=== PATIENT | male | born 1945 | race Caucasian/White ===

== ENCOUNTER 2017-12-24 03:26 | Inpatient (IN) | payer OTHER ==
[~2017-12-24] VITALS: Ht 172.7 cm; Wt 93.9 kg
[~2017-12-24 03:26] MED LIST: ADULT ASPIRIN R81 MG PO; CALCIUM CARBONATE PO; COREG12.5 M1 PO; CRESTOR5 M1 PO; HYDROCHLOROTH12.5 M3 PO; LISINOPRIL10 M1 PO
--- NOTE | 2017-12-24 15:42 | Admission Core Measures ---
Acute Coronary Syndrome (CM) ACS Core Measures Acute Coronary Syndrome Diagnosis No Congestive Heart Failure (NEW) CHF Core Measures Congestive Heart Failure Diagnosis No Cerebrovascular Accident CVA Core Measures CVA/TIA Diagnosis No Venous Thromboembolism VTE Core Juan Alberto (View Protocol) VTE Risk Factors Surgery No Mechanical VTE Prophylaxis d/t N/A MechProphylax Ordered No VTE Pharm Prophylaxis d/t NA PharmProphylax ordered Problem List As ranked by this Provider includes Assessment & Plan 1. Unilateral primary osteoarthritis, left knee HOME MEDS Home Med List Aspirin (Adult Aspirin Regimen) 81 MG TABLET.DR 1 TAB PO DAILY HEART HEALTH ( Reported) [CALCIUM CARBONATE] 500 MG PO DAILY UNKNOWN (Reported) Carvedilol (Coreg) 12.5 MG TABLET 1 TAB PO BID IRREG. HEART BEAT (Reported) Hydrochlorothiazide 12.5 MG CAPSULE 1 CAP PO DAILY DAILY (Reported) Lisinopril 10 MG TABLET 1 TAB PO DAILY BP (Reported) Rosuvastatin Calcium (Crestor) 5 MG TABLET 1 TAB PO DAILY CHOLESTEROL ( Reported)
[2017-12-24] MEDS ORDERED: DILAUDID2 M1 PO (15:56)
[2017-12-24] MEDS ORDERED: PRILOSEC OTC20 M1 PO (15:56)
[2017-12-24] MEDS ORDERED: MIRALAX17 G1 PO (15:56)
[2017-12-24] MEDS ORDERED: ASPIRIN EC81 M1 PO (15:56)
[2017-12-24] MEDS ORDERED: COLACE100 M1 PO (15:56)
--- NOTE | 2017-12-24 16:00 | Patient Discharge Instructions ---
Discharge Instructions General Discharge Information You were seen/treated for: Left knee pain related to unilateral primary osteoarthritis You had these procedures: Left total knee replacement Watch for these problems: Increasing pain despite the use of pain medication Increasing redness, warmth or swelling Drainage of any type from incision Inability to bear weight on operative leg Persistent nausea and vomiting Fever greater than 101.5 degrees Do not soak the wound: Yes No bath, but you may shower: Yes Other wound care: Please keep wound clean and dry. No ointments or lotions of any type on or near incision at any time. No exceptions. Your dressing will be changed by your nurse on the second day after your surgery. Daily dry dressing changes are recommended each day thereafter. Do not soak your wound in a bath or pool at any time until otherwise indicated by your surgeon. You may shower, please dry wound immediately after shower with a clean towel. Special Instructions: Aspirin: You are taking this medication to help prevent blood clot formation. Please take with food to protect your stomach lining. Please take as directed. Constipation: Pain medication can cause constipation. Your surgeon has recommended that you take Colace and miralax each day. You may discontinue this medication if you develop loose stool or diarrhea. If you wish to continue this medication, it is available over the counter. If you are unable to move your bowels after several days, if you are unable to pass gas and are developing bloating, nausea, or vomiting as a result, please contact your doctor. Diet Continue normal diet: Yes Recommended Diet: Regular Activity Full Activity/No Limits: No Activity Self Limited: Yes Pounds, do NOT lift more than: 10 Acute Coronary Syndrome Inclusion Criteria At DC or during hospital stay patient has or had the following: ACS DIAGNOSIS No Discharge Core Measures Meds if any: Prescribed or Continued at Discharge Meds if any: NOT Prescribed or Continued at Discharge Congestive Heart Failure Inclusion Criteria At DC or during hospital stay patient has or had the following: CHF DIAGNOSIS No Discharge Core Measures Meds if any: Prescribed or Continued at Discharge Meds if any: NOT Prescribed or Continued at Discharge Cerebrovascular accident Inclusion Criteria At DC or during hospital stay patient has or had the following: CVA/TIA Diagnosis No Discharge Core Measures Meds if any: Prescribed or Continued at Discharge Meds if any: NOT Prescribed or Continued at Discharge Venous thromboembolism Inclusion Criteria VTE Diagnosis No VTE Type NONE VTE Confirmed by (Test) NONE Discharge Core Measures - Per Current guidelines, there needs to be overlap - treatment for the first 5 days of Warfarin therapy. - If discharged on Warfarin prior to 5 days of - overlap therapy, the patient will need to be - assessed for post discharge needs including - *Post discharge parental anticoagulation - *Warfarin and/or parental anticoagulation education - *Follow up date to check INR post discharge At least 5 days overlap therapy as Inpatient No Meds if any: Prescribed or Continued at Discharge Note: Overlap Therapy is Warfarin and Anticoagulant Meds if any: NOT Prescribed or Continued at Discharge
--- NOTE | 2017-12-24 16:01 | Surgical Discharge Summary ---
Visit Information Visit Dates Admission Date: 12/24/17 Discharge Date: 12/26/17 History of Present Illness Chief Complaint: Left knee pain related to unilateral primary osteoarthritis Surgical History Pertinent Surgical History: non-contributory Review of Systems: See H&P Hospital Course Course Attending Physician: Evaristo Jensen MD Primary Care Physician: Zane Velasquez MD Hospital Course: Patient was admitted to the hospital for an elective total joint replacement. The procedure was tolerated well and patient was transferred to a general surgical floor. Diet was advanced and tolerated. The patient was evaluated and treated by physical therapy. At the time of hospital discharge, the vital signs were stable, neurovascular status was intact, and pain was controlled with the use of oral pain medications. Allergies: Coded Allergies: No Known Allergies (12/23/17) PER PRE-OP ORDER SHEET FROM [facility]. - 12/23/17 Significant Procedures: LEFT TOTAL KNEE ARTHROPLASTY Disposition Summary Disposition Principal Diagnosis: Left knee unilateral primary osteoarthritis Additional Diagnosis: None Discharge Disposition: home health services Discharge Instructions General Discharge Information Code Status: Full Code Patient's Diet: Regular, advance as tolerated Patient's Activity: WBAT Follow-Up Instructions/Appts: Follow up with Dr. Jensen in 6 weeks from date of surgery. Please call office to arrange &/or confirm this appointment. Medications at Discharge Discharge Medications: Stop taking the following medications: Aspirin (Adult Aspirin Regimen) 81 MG TABLET. ORAL DAILY Continue taking these medications: [CALCIUM CARBONATE] 500 Milligram ORAL DAILY Hydrochlorothiazide (Hydrochlorothiazide) 12.5 MG CAPSULE 1 Capsule ORAL DAILY Carvedilol (Coreg) 12.5 MG TABLET 1 Tablet ORAL TWICE DAILY Lisinopril (Lisinopril) 10 MG TABLET 1 Tablet ORAL DAILY Rosuvastatin Calcium (Crestor) 5 MG TABLET 1 Tablet ORAL DAILY Start taking the following new medications: Aspirin (Ecotrin*) 81 MG TABLET. 1 Tablet ORAL TWICE DAILY Qty = 60 No Refills Docusate Sodium (Colace) 100 MG CAPSULE 1 Capsule ORAL TWICE DAILY Qty = 14 No Refills Instructions: DISCONTINUE USE IF YOU DEVELOP LOOSE STOOL OR DIARRHEA Polyethylene Glycol 3350 (Miralax) 17 GRAM POWD.PACK 1 Packet ORAL DAILY Qty = 7 No Refills Instructions: dissolve in water, DISCONTINUE USE IF YOU DEVELOP LOOSE STOOL OR DIARRHEA Hydromorphone HCl (Dilaudid) 2 MG TABLET 1-2 Tablet ORAL EVERY 4-6 HOURS NEEDED as needed for PAIN Qty = 36 No Refills Omeprazole Magnesium (Prilosec Otc) 20 MG TABLET.DR 1 Tablet ORAL DAILY Qty = 30 No Refills
--- NOTE | 2017-12-24 16:26 | Operative Report ---
Operative/Inv Procedure Report Surgery Date: 12/24/17 Name of Procedure: 1. Left total knee replacement 2. Right knee cortisone injection Pre-Operative Diagnosis: Bilateral primary knee DJD Post-Operative Diagnosis: Same Estimated Blood Loss: 50ml to 100ml Surgeon/Blood And Plasma Laboratory Assistant: Camila HUTSON,Evaristo Ivy Anesthesia: block Operative/Procedure Note Note: Description of Procedure: The patient was taken to the operating room and positively identified. After induction of spinal anesthesia and administration of appropriate pre-operative antibiotics, the patient was positioned supine on the operating room table and all bony prominences were well padded. The right knee was prepped sterilely and injected with a mixture of 2 mL of Depo -Medrol and 6 mL OF Marcaine. A Band-Aid was placed over the injection site. Attention was then turned to the left lower extremity. A well-padded pneumatic tourniquet was placed on the left upper thigh. After performing a surgical timeout, the left lower extremity was prepped and draped in the usual sterile fashion. After exsanguination with Esmarch the tourniquet was inflated to 250mm of mercury. A standard medial parapatellar approach was made to the knee. This was carried down through skin and subcutaneous tissue to the level of the fascia. Meticulous hemostasis was maintained with Bovie electrocautery. The extensor mechanism and patellar retinaculum were opened sharply and the patella was everted. The infrapatellar fat was resected in order to improve exposure. Osteophytes were trimmed from the patella and femoral condyles and the patella was re-everted and tucked laterally. A medial release was performed and the cruciate ligaments were resected. The tibia was then subluxed anteriorly. Utilizing the appropriate extra-medullary guide, the proximal tibia was trimmed perpendicular to the long axis of the tibial shaft. Attention was then turned to the femur. After opening the medullary canal, the distal femoral cut was made in 6 degrees of valgus utilizing the appropriate intra-medullary guide. The extension gap was checked and found to be appropriate. The femur was then sized and the remainder of the femoral cuts were made with a size 5 4-in-1 femoral cutting guide. The flexion gap was checked and found to be symmetric and appropriate. The knee was then trialed with a size 5 femoral component, a size 6 tibial component and a size 13 mm polyethylene insert. The patella was trimmed to accept an A 38 patella. This yielded excellent range of motion, stability and patellar tracking. All trial components were removed and the knee was copiously irrigated with sterile saline. All components were cemented into place with Bogue Simplex cement. All the components were of the [employer] Triathlon knee system of the above stated sizes. The knee was again irrigated after cementation. The extensor mechanism and patellar retinaculum were repaired using interrupted #1 vicryl suture. The skin was re-approximated with 2-0 vicryl and closed with mariah. A sterile dressing was applied, the tourniquet was deflated, the patient was awakened and taken to the recovery room in satisfactory condition.
[2017-12-24 17:35] VITALS: BP 140/80
[2017-12-24 19:55] VITALS: BP 128/80
[2017-12-24 22:35] VITALS: BP 129/77
--- NOTE | 2017-12-24 23:31 | PN- Orthopedic ---
Subjective Subjective: poc s/p left tka resting comfortably deneis cp, sob, no n+v has ambulated in room Objective Vital Signs and I&Os Vital Signs Date Time Temp Pulse Resp B/P B/P Pulse O2 O2 Flow FiO2 Mean Ox Delivery Rate 12/24 2234 97.7 54 20 129/77 94 Room Air 12/24 2148 54 129/77 12/24 1955 97.7 52 20 128/80 96 Room Air 12/24 1735 96.8 55 18 140/80 91 Room Air Intake & Output 12/24 1600 12/24 0800 12/24 0000 12/23 1600 12/23 0800 12/23 0000 Intake Total Output Total Balance Patient 190 lb Weight Physical Exam: cv: rrr lungs: clear abd: soft, +bs ext: drsg dry distal cms intact Assessment/Plan Assessment/Plan ortho stable plan cont current plan home d/c planning Core Measures Venous Thromboembolism VTE Risk Factors Surgery No Mechanical VTE Prophylaxis d/t N/A MechProphylax Ordered No VTE Pharm Prophylaxis d/t NA PharmProphylax ordered
[2017-12-25] VITALS (7 sets, daily range): BP systolic 102–130; BP diastolic 55–82
[2017-12-25 08:40] LABS: ABSOLUTE BASOPHIL COUNT 0 /CUMM (0.0-0.2); ABSOLUTE EOSINOPHIL COUNT 0 /CUMM (0.0-0.7); ABSOLUTE MONOCYTE COUNT 0.2 /CUMM (0.10-0.60); BASOPHIL % 0.1 % (0.0-2.0); EOSINOPHIL % 0 % (0-5); HEMATOCRIT 34.2 % (42-52); MEAN CORPUSCULAR HGB 29.3 PG (27.0-31.0); MEAN CORPUSCULAR HGB CONC 33.8 G/DL (33.0-37.0); MEAN CORPUSCULAR VOLUME 86.9 FL (80.0-94.0); MEAN PLATELET VOLUME 8.8 FL (7.4-10.4); PLATELET COUNT 256 /CUMM (130-400); RBC DISTRIBUTION WIDTH 14.1 % (11.5-14.5); RED BLOOD CELL CT 3.94 /CUMM (4.70-6.10); WHITE BLOOD CELL COUNT 13.3 /CUMM (4.8-10.8)
--- NOTE | 2017-12-25 09:47 | PN- Orthopedic ---
Subjective Subjective: Awake, alert Ambulated already with PT without difficulty Pain well controlled with meds Objective Vital Signs and I&Os Vital Signs Date Time Temp Pulse Resp B/P B/P Pulse O2 O2 Flow FiO2 Mean Ox Delivery Rate 12/25 0848 76 146/82 12/25 0848 76 146/82 12/25 0417 98.0 86 130/82 95 Room Air 12/25 0013 97.7 70 20 118/58 95 Room Air 12/24 2235 97.7 54 20 129/77 94 Room Air 12/24 2148 54 129/77 12/24 1955 97.7 52 20 128/80 96 Room Air 12/24 1735 96.8 55 18 140/80 91 Room Air Intake & Output 12/25 1600 12/25 0800 12/25 0000 12/24 1600 12/24 0800 12/24 0000 Intake Total 760 372 Output Total 300 0 Balance 460 372 Intake, IV 560 272 Intake, Oral 200 100 Number 0 0 Bowel Movements Output, Urine 300 0 Patient 207 lb 190 lb Weight Weight Reported by Patient Measurement Method Physical Exam: vss, afebrile General: alert and oriented times three Chest: clear anteriorly bilaterally, RRR Abd: soft, good bs Ext: warm, no edema, normosensate, good 5/5 KASIE, no calf tenderness, ice pack in place Wd: dressed, dry Assessment/Plan Assessment/Plan 72yo male pod 1 s/p L TKR continue PT - wbat pain management dc planning asa 81mg po bid for dvt ppx Core Measures Venous Thromboembolism VTE Risk Factors Surgery No Mechanical VTE Prophylaxis d/t N/A MechProphylax Ordered No VTE Pharm Prophylaxis d/t NA PharmProphylax ordered
[2017-12-25 10:01] LABS: GRANULOCYTE % 90.4 % (42.2-75.2)
[2017-12-26 06:36] VITALS: BP 109/64
--- NOTE | 2017-12-26 07:13 | PN- Orthopedic ---
Subjective Subjective: POD#2 S/P LEFT TKA NO MAJOR ISSUES OVRNIGHT DENIES CP, SOB, NO N+V WITH DIET CLEARED BY PT FOR HOME D/C TOLERATING DIET Objective Vital Signs and I&Os Vital Signs Date Time Temp Pulse Resp B/P B/P Pulse O2 O2 Flow FiO2 Mean Ox Delivery Rate 12/26 0636 98.3 72 20 109/64 94 Room Air 12/25 2359 98.4 66 20 108/55 91 Room Air 12/25 2126 72 122/70 12/25 2018 98.1 74 20 125/72 94 Room Air 12/25 1600 98.0 60 20 106/59 95 Room Air 12/25 1208 97.8 64 20 102/58 95 Room Air 12/25 0848 76 146/82 12/25 0848 76 146/82 12/25 0800 98.0 62 18 108/68 97 Room Air Intake & Output 12/26 0800 12/26 0000 12/25 1600 12/25 0800 12/25 0000 12/24 1600 Intake Total 640 480 760 372 Output Total 400 250 300 0 Balance -400 390 480 460 372 Intake, IV 560 272 Intake, Oral 640 480 200 100 Number 0 0 Bowel Movements Output, Urine 400 250 300 0 Patient 207 lb 190 lb Weight Weight Reported by Patient Measurement Method Physical Exam: CV: RRR LUNGS: CLEAR ABD: SOFT, +BS EXT: DRSG CHANGED, WOUND C/D/I NO CLAF TENDERNESS BILAT DISTAL CMS INTACT Assessment/Plan Assessment/Plan ORTHO STABLE PLAN HOME D/C THIS AM F/U DR MCCOY 6 WEEKS Core Measures Venous Thromboembolism VTE Risk Factors Surgery No Mechanical VTE Prophylaxis d/t N/A MechProphylax Ordered No VTE Pharm Prophylaxis d/t NA PharmProphylax ordered
[2017-12-26 08:43] VITALS: BP 112/68
== END 2017-12-26 11:37 | disposition home health service (06) | DRG 470 ==
LOC: SDA 03:26 → ENRESERV 16:54 → ENTRNSPT 17:26 → EDTRNSPT 17:29 → EDTRNSPTSTS 17:29 → 2NB 17:36 → CMPTRNSPT 17:43 → ENPENDDIS 12-26 07:34 → ENTRNSPT 12-26 10:50 → EDTRNSPT 12-26 11:32 → EDTRNSPTSTS 12-26 11:32 → 2NB 12-26 11:37 → CMPTRNSPT 12-26 11:38
PROVIDERS: Nurse Practitioner
PROC: 0SRD0J9 Replacement of Left Knee Joint with Synthetic Substitute, Cemented, Open Approach (ICD-10-PCS; principal; 2017-12-24)
PROC: 3E0T33Z Introduction of Anti-inflammatory into Peripheral Nerves and Plexi, Percutaneous Approach (ICD-10-PCS; principal; 2017-12-24)
PROC: 3E0T3BZ Introduction of Anesthetic Agent into Peripheral Nerves and Plexi, Percutaneous Approach (ICD-10-PCS; principal; 2017-12-24)
DX: M17.12 Unilateral primary osteoarthritis, left knee (principal); I42.9 Cardiomyopathy, unspecified; I10 Essential (primary) hypertension; E78.5 Hyperlipidemia, unspecified; Z85.038 Personal history of other malignant neoplasm of large intestine
CPT/HCPCS: 2NBP; 36592; 82436; 88305; 97110-GO; 97116-GO; 97161-GP; 97530-GO; C1713; J0131; J0690; J1030; J1100; J2405; J2550; J7042